=== PATIENT | female | born 1945 | race Two or more races ===

== ENCOUNTER 2018-09-14 06:00 | Day surgery (SDC) | payer OTHER ==
[~2018-09-14 06:00] MED LIST: COZAAR25 MG PO; CYMBALTA30 MG PO; GRALISE600 MG PO; NEPHRONEX-SL T1 EACH PO; VALSARTAN PO
== END 2018-09-14 10:05 | disposition home or self-care (01) ==
LOC: CIR.AMB 06:00
DX: M51.26 Other intervertebral disc displacement, lumbar region (principal)